=== PATIENT | female | born 1960 | race Caucasian/White ===

== ENCOUNTER 2023-07-02 04:10 | Day surgery (SDC) | payer OTHER ==
[2023-06-25 15:35] VITALS: BMI 27.4
[2023-07-02 06:43] VITALS: RESP 16
[2023-07-02] MEDS ORDERED: PROPOFOL 20 ML ONE (09:04)
[2023-07-02] MEDS ORDERED: MIDAZOLAM HCL 2 MG/2 ML SINGLE DOSE VIAL ONE (09:04)
[2023-07-02] MEDS ORDERED: ONDANSETRON 4 MG/2 ML VIAL ONE (10:32)
[2023-07-02] MEDS ORDERED: ONDANSETRON 4 MG/2 ML VIAL IVPUSH ONE (10:35)
[2023-07-02] MEDS ORDERED: HALOPERIDOL LACTATE 5 MG/ML IM ONE (11:51)
[2023-07-02 12:42] VITALS: BP 142/68; PULSE 57; TEMP 97.7
== END 2023-07-02 13:11 | disposition home or self-care (01) ==
LOC: JASU-SURG 04:10
PROVIDERS: ATTEND Urology
PROC: 0TF3XZZ Fragmentation in Right Kidney Pelvis, External Approach (ICD-10-PCS; principal; 2023-07-02 09:16)
DX: N20.0 Calculus of kidney (principal)
CPT/HCPCS: 82962

== ENCOUNTER 2023-11-13 04:55 | Day surgery (SDC) | payer OTHER ==
[2023-11-12 11:45] VITALS: BMI 27.4
[2023-11-13 09:52] VITALS: TEMP 97.7
[2023-11-13 10:38] VITALS: BP 128/54; PULSE 63; RESP 14
== END 2023-11-13 10:24 | disposition home or self-care (01) ==
LOC: JASU-ENDO 04:55
PROVIDERS: ATTEND Internal Medicine Gastroenterology
PROC: 0DJD8ZZ Inspection of Lower Intestinal Tract, Via Natural or Artificial Opening Endoscopic (ICD-10-PCS; principal; 2023-11-13 09:00)
DX: Z12.11 Encounter for screening for malignant neoplasm of colon (principal); Z86.010 Personal history of colon polyps; Z80.0 Family history of malignant neoplasm of digestive organs; K57.30 Diverticulosis of large intestine without perforation or abscess without bleeding
CPT/HCPCS: 82962

== ENCOUNTER 2024-10-20 04:15 | Day surgery (SDC) | payer OTHER ==
[2024-10-17 11:26] VITALS: BMI 28.6
[2024-10-20 07:36] VITALS: RESP 20
[2024-10-20] MEDS ORDERED: MIDAZOLAM HCL 2 MG/2 ML SINGLE DOSE VIAL ONE (09:22)
[2024-10-20] MEDS ORDERED: PROPOFOL 20 ML ONE ×2 (09:22→09:37)
[2024-10-20 16:05] VITALS: BP 143/86; PULSE 66; TEMP 97.3
== END 2024-10-20 11:53 | disposition home or self-care (01) ==
LOC: JASU-SURG 04:15
PROVIDERS: ATTEND Urology
PROC: 0TF4XZZ Fragmentation in Left Kidney Pelvis, External Approach (ICD-10-PCS; principal; 2024-10-20 09:30)
DX: N20.0 Calculus of kidney (principal)
CPT/HCPCS: 82962

== ENCOUNTER 2025-03-23 05:16 | Day surgery (SDC) | payer OTHER ==
[2025-03-19 12:46] VITALS: BMI 28.7
[2025-03-23 06:47] VITALS: RESP 20
[2025-03-23] MEDS ORDERED: MIDAZOLAM HCL 2 MG/2 ML SINGLE DOSE VIAL ONE (08:50)
[2025-03-23] MEDS ORDERED: DEXAMETHASONE SOD PHOSPHATE 4 MG/1 ML VIAL ONE (08:51)
[2025-03-23] MEDS ORDERED: ONDANSETRON 4 MG/2 ML VIAL ONE (08:51)
[2025-03-23 09:44] VITALS: TEMP 97.7
[2025-03-23 12:40] VITALS: BP 130/80; PULSE 74
== END 2025-03-23 12:26 | disposition home or self-care (01) ==
LOC: JASU-SURG 05:16
PROVIDERS: ATTEND Urology
PROC: 0TF4XZZ Fragmentation in Left Kidney Pelvis, External Approach (ICD-10-PCS; principal; 2025-03-23 08:30)
DX: N20.0 Calculus of kidney (principal)
CPT/HCPCS: 82962